=== PATIENT | female | born 1985 | race Caucasian/White ===

== ENCOUNTER 2017-04-03 14:54 | Emergency (ER) | payer OTHER ==
[~2017-04-03] VITALS: Ht 162.6 cm; Wt 48.0 kg
[~2017-04-03 14:54] MED LIST: FOLI1 PO; HYDRO50 PO; LEXA20TA PO; QUET25 PO; THIA100T PO
[2017-04-03 15:14] VITALS: BP 117/78; PULSE 103; RESP 18; TEMP 99.1; O2SAT 99
--- NOTE | 2017-04-03 16:43 | PD ---
HPI Chief Complaint: Psychiatric Symptoms Time Seen by Provider: 16:38 Travel History International Travel<30 days: No Contact w/Intl Traveler<30days: No History of Present Illness HPI 31-year-old female requesting psychiatric evaluation. Patient denies any medical problem. Patient is on Lexapro. Patient denies any headache. Patient denies any chest pain or shortness of breath. Patient denies abdominal pain. Patient denies any focal weakness or numbness of extremity. Patient is not sure . Patient denies any alcohol or drug abuse. PFSH Past Medical History Asthma: No Anxiety: Yes Depression: Yes Cancer: No Cardiovascular Problems: No Diabetes: No Diminished Hearing: No Endocrine: No Genitourinary: No Immune Disorder: No Musculoskeletal: No Neurologic: No Psychiatric: Yes Reproductive: No Respiratory: No Tetanus Vaccination: < 5 Years ?: Unknown LMP: 10-15-17 Menopausal: No : 0 Para: 0 Past Surgical History Surgical History: No Previous Surgery Social History Alcohol Use: Yes (occasional) Tobacco Use: No Substance Use: No Allergies-Medications (Allergen,Severity, Reaction): Coded Allergies: No Known Allergies (Verified , 07/20/15) Reported Meds & Prescriptions Reported Meds & Active Scripts Active Lexapro (Escitalopram Oxalate) 20 Mg Tab 20 Mg PO DAILY 15 Days Review of Systems General / Constitutional: No: Fever Eyes: No: Visual changes HENT: No: Headaches Cardiovascular: No: Chest Pain or Discomfort Respiratory: No: Shortness of Breath Gastrointestinal: No: Abdominal Pain Genitourinary: No: Dysuria Musculoskeletal: No: Pain Skin: No Rash Neurologic: No: Weakness Psychiatric: No: Depression Endocrine: No: Polydipsia Hematologic/Lymphatic: No: Easy Bruising Physical Exam Narrative GENERAL: Well-nourished, well-developed patient. SKIN: Focused skin assessment warm/dry. HEAD: Normocephalic. EYES: No scleral icterus. No injection or drainage. NECK: Supple, trachea midline. No JVD or lymphadenopathy. CARDIOVASCULAR: Regular rate and rhythm without murmurs, gallops, or rubs. RESPIRATORY: Breath sounds equal bilaterally. No accessory muscle use. GASTROINTESTINAL: Abdomen soft, non-tender, nondistended. MUSCULOSKELETAL: No cyanosis, or edema. BACK: Nontender without obvious deformity. No CVA tenderness. Neurologic exam normal. Data Data Last Documented VS Vital Signs Date Time Temp Pulse Resp B/P (MAP) Pulse Ox O2 Delivery O2 Flow Rate FiO2 04/03/17 15:14 99.1 103 18 117/78 (91) 99 Room Air Orders Orders Diet Regular Basic (04/03/17 Dinner) Ed Urine Pregnancytest Poc (04/03/17 16:38) MDM Medical Decision Making Medical Screen Exam Complete: Yes Emergency Medical Condition: Yes Differential Diagnosis Differential diagnosis including psychiatric evaluation. Narrative Course 31-year-old female requesting psychiatric evaluation. 1641 PM. Patient is medically cleared for psychiatric evaluation and disposition. Cristian Bingham MD Apr 03, 2017 16:43
--- NOTE | 2017-04-03 17:19 | PD ---
History of Present Illness Chief Complaint: Psychiatric Symptoms Time Seen by Provider: 16:45 Travel History International Travel<30 Days: No Contact w/Intl Traveler<30days: No Legal Status Legal Status: Voluntary History of Present Illness: History of Present Illness HPI 31-year-old female with history of depression and anxiety who presents to ed on a voluntary basis accompanied by a friend and requesting psychiatric evaluation. She reports that she has not been able to sleep well for the past 3 nights and had no sleep last night. She also reports feeling anxious. Stressors include the attempted suicidal of her father 2 weeks ago. Her mother 5 years ago and she has been providing emotional support to her father. She recently broke up with her boyfriend. She is alert, oriented female, casually dressed. She is tearful. Speech is clear , logical. She does not present any psychosis, no angel or hypomania. Mood is anxious and depressed. Feels overwhelmed with current stressors. had stopped taking antidepressants and just restarted a few weeks ago. She is not suicidal or homicidal. EMR. She was admitted to psychiatry in July of 2015 under the care of Dr. Hager. After that admission she stopped her medications once she felt better. Telephone call to her friend Esha Hinojosa.with her consent at [phone]. She has no concerns about her safety if she is discharged. She will stay with the patient and will bring her back to the ED if any changes or concerns. . PFSH Past Medical History Asthma: No Anxiety: Yes Depression: Yes Cancer: No Cardiovascular Problems: No Diabetes: No Diminished Hearing: No Endocrine: No Genitourinary: No Immune Disorder: No Musculoskeletal: No Neurologic: No Psychiatric: Yes Reproductive: No Respiratory: No Tetanus Vaccination: < 5 Years ?: Unknown LMP: 10-15-17 Menopausal: No : 0 Para: 0 Past Surgical History Surgical History: No Previous Surgery Psychiatric History Psychiatric History Hx Psychiatric Treatment: Outpatietn treatmetn with Dr. Mei. Previous suicide attempt buy overdose. History of Inpatient Treatment: Yes ([facility] [place] [facility]. 2015) Social History Single female. 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 Hx Alcohol Use: Yes (occasional) Hx Tobacco Use: No Hx Substance Use: No Hx of Substance Use Treatment: No Family Psychiatric History Father attempted suicide 2 weeks ago. Maternal aunt attempted suicide. Mother with hx of depression. Allergies-Medications (Allergen,Severity, Reaction): Coded Allergies: No Known Allergies (Verified , 07/20/15) Reported Meds & Prescriptions Reported Meds & Active Scripts Active Lexapro (Escitalopram Oxalate) 20 Mg Tab 20 Mg PO DAILY 15 Days Review of Systems Except as stated in HPI: all other systems reviewed are Neg Mental Status Examination Appearance: Appropriate Consciousness: Alert Orientation: x4 Motor Activity: Normal gait Speech: Unremarkable Language: Adequate Fund of Knowledge: Adequate Attention and Concentration: Adequate Memory: Unremarkable Mood: Sad, Anxious Affect: Sad Thought Process & Associations: Intact Thought Content: Appropriate Hallucination Type: None Delusion Type: None Suicidal Ideation: No Suicidal Plan: No Suicidal Intention: No Homicidal Ideation: No Homicidal Plan: No Homicidal Intention: No Insight: Adequate Judgment: Adequate MDM Medical Decision Making Medical Record Reviewed: Yes Assessment/Plan 31 year old female with history of depression and anxiety who presents under a voluntary status reporting impaired sleep in context of increase anxiety, mind not shutting off, increase in depression. Patient is not suicidal or homicidal . patient declines inpatient admission for medication adjustment. prefers to follow up with Dr. Mei. Has support at home and I have contacted her roommate for collateral information. Will prescribe Seroquel 100 mg po at [facility] for sleep. Continue with Lexapro. Vistaril 25 mg po q 6 hours for anxiety. Supportive interaction. To follow up with Dr. Mei. return to [facility] [place] if any changes or concerns. Contracts for safety. Orders Orders Diet Regular Basic (04/03/17 Dinner) Ed Urine Pregnancytest Poc (04/03/17 16:38) Results Vital Signs Date Time Temp Pulse Resp B/P (MAP) Pulse Ox O2 Delivery O2 Flow Rate FiO2 04/03/17 15:14 99.1 103 18 117/78 (91) 99 Room Air Diagnosis Primary Impression: Adjustment disorder with mixed disturbance of emotions and conduct Psychiatrically Cleared: Yes Med/ Other Pt Specific Info: Prescription(s) given Prescriptions Hydroxyzine Pamoate (Vistaril) 25 Mg Cap 25 MG PO Q6H Y for ANXIETY for 30 Days, #60 CAP 0 Refills Prov: Brittany Guzmán 04/03/17 Quetiapine (Seroquel) 100 Mg Tab 100 MG PO HS for Insomnia for 30 Days, #30 TAB 0 Refills Prov: Brittany Guzmán 04/03/17 Disposition: 01 DISCHARGE HOME Condition: Stable Brittany Guzmán Apr 03, 2017 17:19
[2017-04-03] MEDS ORDERED: SERO100T PO (17:29)
[2017-04-03] MEDS ORDERED: VIST25CA PO (17:31)
== END 2017-04-03 17:55 | disposition home or self-care (01) ==
LOC: NEPJ 14:54
DX: Z02.89 Encounter for other administrative examinations (principal); F43.25 Adjustment disorder with mixed disturbance of emotions and conduct; Z86.59 Personal history of other mental and behavioral disorders
CPT/HCPCS: 84703; 99284

== ENCOUNTER 2017-04-28 09:22 | Emergency (ER) | payer OTHER ==
[~2017-04-28] VITALS: Ht 162.6 cm; Wt 50.0 kg
[~2017-04-28 09:22] MED LIST changes: -FOLI1 PO; -HYDRO50 PO; -QUET25 PO; +SERO100T PO; -THIA100T PO; +VIST25CA PO
[2017-04-28 09:23] VITALS: BP 129/87; PULSE 96; RESP 14; TEMP 97.9; O2SAT 99
[2017-04-28] MEDS ORDERED: KETOROLAC TROMETHAMINE 60 MG/2 ML (IM) VIAL IM ONE (09:30)
--- NOTE | 2017-04-28 09:38 | PD ---
HPI Chief Complaint: Back/ Neck Pain or Injury Time Seen by Provider: 09:31 Travel History International Travel<30 days: No Contact w/Intl Traveler<30days: No Traveled to known affect area: No History of Present Illness HPI 31 YO F presents to ED for evaluation of sudden onset 7/10, sharp back pain "shooting" down the right leg. Onset just before arrival after the patient bent down to retrieve garbage from the floor of the ED. The patient denies numbness, tingling, weakness of the extremities, saddle anesthesia or bowel/ bladder incontinence. She denies problems with her back in the past. Denies risk of . No treatment attempted before presentation. PFSH Past Medical History Asthma: No Anxiety: Yes Depression: Yes Cancer: No Cardiovascular Problems: No Diabetes: No Diminished Hearing: No Endocrine: No Genitourinary: No Immune Disorder: No Musculoskeletal: No Neurologic: No Psychiatric: Yes Reproductive: No Respiratory: No ?: Not LMP: 03/2017 Menopausal: No : 0 Para: 0 Social History Alcohol Use: Yes (occasional) Tobacco Use: No Substance Use: No Allergies-Medications (Allergen,Severity, Reaction): Coded Allergies: No Known Allergies (Verified Adverse Reaction, Unknown, 04/28/17) Reported Meds & Prescriptions Reported Meds & Active Scripts Active Flexeril (Cyclobenzaprine HCl) 7.5 Mg Tab 7.5 Mg PO TID Ibuprofen 600 Mg Tab 600 Mg PO Q8H PRN Vistaril (Hydroxyzine Pamoate) 25 Mg Cap 25 Mg PO Q6H PRN 30 Days Seroquel (Quetiapine Fumarate) 100 Mg Tab 100 Mg PO HS 30 Days Review of Systems Except as stated in HPI: all other systems reviewed are Neg Physical Exam Narrative GENERAL: Well-nourished, well-developed petite white female in NAD. SKIN: Focused skin assessment warm/dry. HEAD: Normocephalic. EYES: No scleral icterus. No injection or drainage. NECK: Supple, trachea midline. No JVD or lymphadenopathy. CARDIOVASCULAR: Regular rate and rhythm without murmurs, gallops, or rubs. RESPIRATORY: Breath sounds equal bilaterally. No accessory muscle use. GASTROINTESTINAL: Abdomen soft, non-tender, nondistended. MUSCULOSKELETAL: No cyanosis, or edema. 5/5 strength of plantar flexion, dorsiflexion, knee and hip flexion bilaterally. Straight leg raise + on the right. BACK: Nontender without obvious deformity. No CVA tenderness. No midline TTP. No TTP over the sciatic notch. Data Data Last Documented VS Vital Signs Date Time Temp Pulse Resp B/P (MAP) Pulse Ox O2 Delivery O2 Flow Rate FiO2 04/28/17 09:57 04/28/17 09:23 97.9 96 14 99 Orders Orders Ketorolac Inj (Toradol Inj) (04/28/17 09:30) Ed Discharge Order (04/28/17 10:05) [facility] Medical Decision Making Medical Screen Exam Complete: Yes Emergency Medical Condition: Yes Differential Diagnosis Musculoskeletal pain versus back pain versus muscle spasm versus sciatica versus other Narrative Course 31 YO F presents to ED for evaluation of sudden onset 11/23, sharp back pain "shooting" down the right leg. Onset just before arrival after the patient bent down to retrieve garbage from the floor of the ED. The patient denies numbness, tingling, weakness of the extremities, saddle anesthesia or bowel/ bladder incontinence. She denies problems with her back in the past. Vitals reviewed. On physical exam the patient has equal strength in the bilateral lower extremities. Straight leg raise positive on the right. She was administered 30 mg Toradol IM. She is provided prescriptions for 6 mg ibuprofen and 7.5 mg Flexeril when necessary 3 times a day. She is instructed to rest, hydrate, return to normal, gentle activities as tolerated, follow up with her primary care provider or neurologist should symptoms persist. She indicated understanding of instructions and is agreeable to the care plan. She is stable and discharged home. Diagnosis Primary Impression: Back pain with right-sided sciatica Referrals: Neurologist Primary Care Physician Patient Instructions: General Instructions, Sciatica (ED) Additional Instructions: Rest, hydrate. Return to normal, gentle activities as tolerated. Ice or heat applied to areas of pain may help to reduce your pain symptoms. Take medication as prescribed. Do not drive while taking muscle relaxants as they may cause drowsiness. Follow up with your primary care provider or neurologist if symptoms persist. Return to the ED for any urgent or emergent medical condition. Med/Other Pt SpecificInfo: Prescription(s) given Scripts Cyclobenzaprine (Flexeril) 7.5 Mg Tab 7.5 MG PO TID for Muscle Spasm, #15 TAB 0 Refills Prov: Dari Guerra DO 04/28/17 Ibuprofen (Ibuprofen) 600 Mg Tab 600 MG PO Q8H Y for PAIN, #15 TAB 0 Refills Prov: Dari Guerra DO 04/28/17 Disposition: 01 DISCHARGE HOME Condition: Stable Saige Shetty Apr 28, 2017 09:38
[2017-04-28] MEDS ORDERED: IBUP-232 PO (09:39)
[2017-04-28] MEDS ORDERED: CYCL7.5T33 PO (09:39)
== END 2017-04-28 10:08 | disposition home or self-care (01) ==
LOC: NEPK 09:22
DX: M54.31 Sciatica, right side (principal); F41.9 Anxiety disorder, unspecified; F32.9 Major depressive disorder, single episode, unspecified; Z79.899 Other long term (current) drug therapy
CPT/HCPCS: 96372; 99284; J1885